=== PATIENT | female | born 1980 | race Caucasian/White ===

== ENCOUNTER 2018-01-30 14:53 | Emergency (ER) | payer MEDICAID, OTHER ==
[2018-01-30] MEDS ORDERED: oxyCODONE 5 MG Tab PO ONE (16:14)
[2018-01-30] MEDS ORDERED: Sodium Chloride 0.9% 10 ML Syringe FLUSH PRN (16:17)
--- NOTE | 2018-01-30 16:21 | EDM.PDOC ---
ED HPI GENERAL MEDICAL PROBLEM - General Chief Complaint: ENT Problem Stated Complaint: TOOTHACHE Time Seen by Provider: 01/30/18 16:15 Source of Information: Reports: Patient History Limitations: Reports: No Limitations - History of Present Illness INITIAL COMMENTS - FREE TEXT/NARRATIVE: Sully is a 37 year old female who presents to the ED today with c/o right sided facial pain, progressive over the last 2 days. Patient denies any tooth pain. Patient denies any fever/chills/nausea/vomiting. Patient has been taking ibuprofen and Tylenol without relief. Onset: Gradual Duration: Day(s): (2) right jaw Pain Score (Numeric/FACES): 9 - Related Data Allergies Allergy/AdvReac Type Severity Reaction Status Date / Time gabapentin Allergy Severe Muscle Verified 01/30/18 15:32 Weakness Sulfa (Sulfonamide Allergy Intermediate Rash Verified 01/30/18 15:32 Antibiotics) cat dander Allergy Hives Verified 01/30/18 15:32 dog dander Allergy Hives Verified 01/30/18 15:32 mold Allergy Hives Verified 01/30/18 15:32 Home Meds: Home Meds Cholecalciferol (Vitamin D3) [Vitamin D] 2,000 unit PO DAILY 06/10/13 [History] diphenhydrAMINE [Benadryl] 50 mg PO ASDIRECTED PRN 01/29/14 [History] Acetaminophen [Tylenol Extra Strength] 1,000 tab PO BID PRN 03/21/15 [History] Cetirizine [ZyrTEC] 10 mg PO BID 03/21/15 [History] predniSONE [Prednisone] 5 mg PO DAILY 03/21/15 [History] Triamcinolone Acetonide [Triamcinolone Acetonide 0.1% Oint] 1 applic TOP BID [History] tiZANidine [Zanaflex] 4 mg PO BID 12/20/15 [History] Omeprazole 20 mg PO DAILY 01/11/16 [History] DULoxetine [Cymbalta] 60 mg PO DAILY 01/30/18 [History] azaTHIOprine [Imuran] 75 mg PO BID 01/30/18 [History] Past Medical History HEENT History: Reports: Allergic Rhinitis Other HEENT History: recurrent strep Respiratory History: Reports: Other (See Below) Other Respiratory History: Indoor allergies Gastrointestinal History: Reports: GERD, Hiatal Hernia Other Gastrointestinal History: Constipation, Fatty Liver 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 sacrioilitis Psychiatric History: Reports: Addiction, Anxiety, Depression, Psych Hospitalization(s), PTSD, Suicidal Ideation Other Endocrine/Metabolic History: Questionable Lupus Other Dermatologic History: Returning rash treated with triamcinolone cream - Infectious Disease History Infectious Disease History: Reports: Other (See Below) Other Infectious Disease History: HPV - Past Surgical History Musculoskeletal Surgical History: Reports: Arthroscopic Knee Social & Family History - Tobacco Use Smoking Status *Q: Current Every Day Smoker Years of Tobacco use: 18 Packs/Tins Daily: 0.5 - Recreational Drug Use Recreational Drug Use: No ED ROS ENT - Review of Systems Review Of Systems: ROS reveals no pertinent complaints other than HPI. ED EXAM, ENT - Physical Exam Exam: See Below Exam Limited By: No Limitations General Appearance: Alert, WD/WN, Other (appears uncomfortable) Ears: Normal External Exam, Normal Canal, Normal TMs Nose: Normal Inspection, Normal Mucousa Mouth/Throat: Normal Inspection, Normal Gums, Normal Lips, Normal Oropharynx, Normal Teeth, Other (Patient has no tenderness with tooth tapping) Head: Atraumatic, Facial Tenderness (Right mastoid area is significantly tender on exam, as well as right TMJ region) Neck: Normal Inspection, Supple, Non-Tender Respiratory/Chest: No Respiratory Distress Cardiovascular: Regular Rate, Rhythm GI/Abdominal: Normal Bowel Sounds Neurological: Alert, Oriented Psychiatric: Normal Affect Course - Vital Signs Last Recorded V/S: Last Vital Signs Temp 35.8 C 01/30/18 15:47 Pulse 76 01/30/18 17:09 Resp 12 01/30/18 17:09 BP 136/85 01/30/18 17:09 Pulse Ox 99 01/30/18 17:09 Sully is a 37 year old female who presents to the ED today with c/o right jaw pain. Please refer to HPI and focused exam. Patient has very tender mastoid but no other signs of mastoiditis. Teeth are not tender to palp. TM and right ear unremarkable. CT scan obtained a maxillofacial contrast to rule out mastoiditis/abscess. CT scan shows no signs of acute mastoiditis, no malloclussion, there is concern radiology for possible right-sided subluxation. Patient is able tto open her mouth fully without pain. GIven reassuring CT scan I am going to treat this as dental in nature and start patient on Amoxicillin, Ibuprofen for pain, [place] for sever pain, narcotic safety and side effects discussed. Patient to call dentist tomorrow morning. Reasons to return to the ED discussed. Patient agreeable and discharged in stable condition. - Orders/Labs/Meds Orders: Active Orders 24 hr Category Date Time Status Peripheral IV Care [RC] . DIRECTED Care 01/30/18 16:17 Active Max Facial Sinus w Cont [CT] Stat Exams 01/30/18 16:14 Taken Iopamidol [Isovue-300 (61%)] Med 01/30/18 16:30 Active 100 ml IV . DIRECTED Sodium Chloride 0.9% [Saline Flush] Med 01/30/18 16:17 Active 10 ml FLUSH ASDIRECTED PRN Peripheral IV Insertion Adult [OM.PC] Routine Oth 01/30/18 16:17 Ordered Medication Orders Iopamidol (Isovue-300 (61%)) 100 ml IV . DIRECTED ELIUD Last Admin: 01/30/18 16:46 Dose: 100 ml Sodium Chloride (Saline Flush) 10 ml FLUSH ASDIRECTED PRN PRN Reason: Keep Vein Open Last Admin: 01/30/18 16:25 Dose: 10 ml Meds: Medications Generic Name Dose Route Start Last Admin Trade Name Freq PRN Reason Stop Dose Admin Iopamidol 100 ml 01/30/18 16:30 01/30/18 16:46 Isovue-300 (61%) IV 100 ml . DIRECTED ELIUD Administration Sodium Chloride 10 ml 01/30/18 16:17 01/30/18 16:25 Saline Flush FLUSH 10 ml ASDIRECTED PRN Administration Keep Vein Open Discontinued Medications Generic Name Dose Route Start Last Admin Trade Name Freq PRN Reason Stop Dose Admin Sodium Chloride 80 mls @ 3.5 mls/sec 01/30/18 16:26 01/30/18 16:46 Normal Saline IV 01/30/18 16:27 2 mls/sec ONETIME ONE Administration Oxycodone HCl 10 mg 01/30/18 16:14 01/30/18 16:24 Oxycodone PO 01/30/18 16:15 10 mg ONETIME ONE Administration Sodium Chloride 10 ml 01/30/18 16:26 01/30/18 16:46 Saline Flush FLUSH 01/30/18 16:27 10 ml ONETIME ONE Administration Departure - Departure Time of Disposition: 18:25 Disposition: Home, Self-Care 01 Condition: Good Clinical Impression: Jaw pain - Discharge Information Instructions: Dental Abscess, [id number] Referrals: PCP,None [Primary Care Provider] - Forms: ED Department Discharge Additional Instructions: Take antibiotics as prescibed. Ibuprofen 600 mg every 6 hours. [place] for pain. Follow up with primary care provider. - My Orders Last 24 Hours: My Active Orders 01/30/18 16:14 Max Facial Sinus w Cont [CT] Stat 01/30/18 16:17 Peripheral IV Care [RC] . DIRECTED Sodium Chloride 0.9% [Saline Flush] 10 ml FLUSH ASDIRECTED PRN Peripheral IV Insertion Adult [OM.PC] Routine 01/30/18 16:30 Iopamidol [Isovue-300 (61%)] 100 ml IV . DIRECTED - Assessment/Plan Last 24 Hours: My Active Orders 01/30/18 16:14 Max Facial Sinus w Cont [CT] Stat 01/30/18 16:17 Peripheral IV Care [RC] . DIRECTED Sodium Chloride 0.9% [Saline Flush] 10 ml FLUSH ASDIRECTED PRN Peripheral IV Insertion Adult [OM.PC] Routine 01/30/18 16:30 Iopamidol [Isovue-300 (61%)] 100 ml IV . DIRECTED
[2018-01-30] MEDS ORDERED: Sodium Chloride 0.9% 10 ML Syringe FLUSH ONE (16:26)
[2018-01-30] MEDS ORDERED: Sodium Chloride 0.9% 80 ML IV ONE (16:26)
[2018-01-30] MEDS ORDERED: Iopamidol 612 MG/ML 100 ML Bottle IV SCH (16:30)
[2018-01-30 17:10] VITALS: BP 136/85
== END 2018-01-30 18:25 | disposition home or self-care (01) ==
LOC: JP.ED 14:53
DX: R68.84 Jaw pain (principal); F17.210 Nicotine dependence, cigarettes, uncomplicated; F41.9 Anxiety disorder, unspecified; F32.9 Major depressive disorder, single episode, unspecified; K21.9 Gastro-esophageal reflux disease without esophagitis; Z79.899 Other long term (current) drug therapy; Z88.2 Allergy status to sulfonamides; Z91.09 Other allergy status, other than to drugs and biological substances; Z88.8 Allergy status to other drugs, medicaments and biological substances
CPT/HCPCS: 70487; 99284; A9270; J7030; J7050; Q9967

== ENCOUNTER 2019-12-22 15:33 | Emergency (ER) | payer OTHER, MEDICAID ==
[2019-12-22 15:57] VITALS: PULSE 73
[2019-12-22 15:59] VITALS: BP 110/64
[2019-12-22] MEDS ORDERED: Bupivacaine 0.5%/EPINEPHrine 1:200,000 1.8 ML Cartridge INJECT ONE (16:24)
--- NOTE | 2019-12-22 16:24 | EDM.PDOC ---
ED HPI GENERAL MEDICAL PROBLEM - General Chief Complaint: ENT Problem Stated Complaint: LOWER LEFT TOOTH PAIN Time Seen by Provider: 12/22/19 16:00 Source of Information: Reports: Patient, Old Records History Limitations: Reports: Other (no access to dental records) - History of Present Illness INITIAL COMMENTS - FREE TEXT/NARRATIVE: 39 yo female has been dealing with her dentist over a painful L sided mandibular molar for over a week. Has been on a couple oral antibiotics, penicillin and clindamycin without benefit. Her dentist apparently is not seeing any patients during the Covid crisis. Was recently to the ER in [place] and has been on the above antibiotics from her primary. Not fever. Has pain with opening her mouth. Feels like she has some facial swelling. Not getting relief with Tylenol #3 and ibuprofen. Onset: Gradual Duration: Week(s): (1+), Getting Worse Location: Reports: Face (L mandible) Quality: Reports: Ache, Pressure Severity: Moderate Improves with: Reports: Medication Worsens with: Reports: Other (time, opening her mouth) Context: Reports: Other (See HPI) Associated Symptoms: Reports: Other (fatigue). 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) (clindamycin 300 mg po, ibuprofen 600 mg 4.5 hrs ago, Tylenol #3) Left Lower Tooth/Teeth Pain Score (Numeric/FACES): 4 - Related Data Allergies Allergy/AdvReac Type Severity Reaction Status Date / Time gabapentin Allergy Severe Muscle Verified 12/22/19 15:50 Weakness Sulfa (Sulfonamide Allergy Intermediate Rash Verified 12/22/19 15:50 Antibiotics) cat dander Allergy Hives Verified 12/22/19 15:50 dog dander Allergy Hives Verified 12/22/19 15:50 mold Allergy Hives Verified 12/22/19 15:50 Home Meds: Home Meds Cholecalciferol (Vitamin D3) [Vitamin D] 2,000 unit PO DAILY 06/10/13 [History] diphenhydrAMINE [Benadryl] 50 mg PO ASDIRECTED PRN 01/29/14 [History] Acetaminophen [Tylenol Extra Strength] 1,000 tab PO BID PRN 03/21/15 [History] Cetirizine [ZyrTEC] 10 mg PO BID 03/21/15 [History] Omeprazole 20 mg PO DAILY 01/11/16 [History] Citalopram [Citalopram HBr] 20 mg PO BEDTIME 12/22/19 [History] Clindamycin HCl 300 mg PO QID 12/22/19 [History] Hydroxychloroquine Sulfate 2 tab PO ASDIRECTED 12/22/19 [History] Past Medical History HEENT History: Reports: Allergic Rhinitis Other HEENT History: recurrent strep Respiratory History: Reports: Other (See Below) Other Respiratory History: Indoor allergies Gastrointestinal History: Reports: GERD, Hiatal Hernia Other Gastrointestinal History: Constipation, Fatty Liver 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 sacrioilitis Psychiatric History: Reports: Addiction, Anxiety, Depression, Psych Hospitalization(s), PTSD, Suicidal Ideation Other Endocrine/Metabolic History: Questionable Lupus Immunologic History: Reports: Other (See Below) Other Immunologic History: palindromic rheumatism. Other Dermatologic History: Returning rash treated with triamcinolone cream - Infectious Disease History Infectious Disease History: Reports: Other (See Below) Other Infectious Disease History: HPV - Past Surgical History Musculoskeletal Surgical History: Reports: Arthroscopic Knee Social & Family History - Tobacco Use Smoking Status *Q: Light Tobacco Smoker Years of Tobacco use: 20 Packs/Tins Daily: 0.7 - Caffeine Use Caffeine Use: Reports: Coffee - Recreational Drug Use Recreational Drug Use: No ED ROS ENT - Review of Systems Review Of Systems: See Below Constitutional: Reports: Malaise, Fatigue. Denies: Fever, Chills HEENT: Reports: Dental Pain Respiratory: Reports: No Symptoms Cardiovascular: Reports: No Symptoms GI/Abdominal: Reports: No Symptoms : Reports: No Symptoms Musculoskeletal: Reports: No Symptoms Skin: Reports: No Symptoms Neurological: Reports: No Symptoms Psychiatric: Reports: No Symptoms ED EXAM, ENT - Physical Exam Exam: See Below Exam Limited By: No Limitations General Appearance: Alert, WD/WN, No Apparent Distress Eye Exam: Bilateral Eye: Normal Inspection Ears: Normal External Exam, Normal Canal, Hearing Grossly Normal, Normal TMs Nose: Normal Inspection, No Blood Mouth/Throat: Normal Inspection, Normal Lips, Normal Oropharynx, Dental Pain (L mandibular 2nd molar has a missing filling. This tooth is very tender. No palpable intraoral swelling or facial swelling. ), Dental Tenderness. No: Normal Teeth, Peritonsillar Mass, Pharyngeal Erythema, Throat Pain, Throat Swelling Head: Atraumatic, Normocephalic. No: Facial Swelling Neck: Normal Inspection. No: Lymphadenopathy (R), Lymphadenopathy (L) Extremities: Normal Inspection Neurological: Alert, Oriented, CN II-XII Intact, Normal Cognition, No Motor/ Sensory Deficits Psychiatric: Normal Affect, Normal Mood Skin: Warm, Dry, Intact, Normal Color, No Rash Course - Vital Signs Text/Narrative:: Sully called her dentist while in the ER and he is working on finding her an oral surgeon to extract her tooth. Last Recorded V/S: Last Vital Signs Temp 36.6 C 12/22/19 15:58 Pulse 73 12/22/19 15:58 Resp 16 12/22/19 15:58 BP 110/64 12/22/19 15:59 Pulse Ox 98 12/22/19 15:58 - Orders/Labs/Meds Meds: Medications Discontinued Medications Generic Name Dose Route Start Last Admin Trade Name Sarah PRN Reason Stop Dose Admin Bupivacaine HCl/Epinephrine Bitart 1.8 ml 12/22/19 16:24 12/22/19 16:31 Marcaine 0.5%/Epinephrine 1:200,000 INJECT 12/22/19 16:25 1.8 ml ONETIME ONE Administration - Re-Assessments/Exams Free Text/Narrative Re-Assessment/Exam: 12/22/19 16:37 Got relief from bupivacaine injection, submandibular nerve block. Departure - Departure Time of Disposition: 16:45 Disposition: Home, Self-Care 01 Condition: Fair Clinical Impression: Pain, dental - Discharge Information *PRESCRIPTION DRUG MONITORING PROGRAM REVIEWED*: No *COPY OF PRESCRIPTION DRUG MONITORING REPORT IN PATIENT JAYCEE: No Referrals: PCP,None [Primary Care Provider] - Forms: ED Department Discharge Additional Instructions: Continue your clindamycin as prescribed. Take ibuprofen 600 mg every 6 hrs with food for pain relief. Add Percocet as directed for added relief. F/U on Wednesday for dental extraction. Soft diet. Sepsis Event Note - Evaluation Sepsis Screening Result: No Definite Risk - Focused Exam Vital Signs: Vital Signs Temp Pulse Resp BP Pulse Ox 12/22/19 15:59 110/64 12/22/19 15:58 36.6 C 73 16 98/39 L 98 04/24/20 15:54 36.6 C 73 16 98/39 L 98 Date Exam was Performed: 12/22/19 Time Exam was Performed: 16:37
== END 2019-12-22 16:54 | disposition home or self-care (01) ==
LOC: JP.ED 15:33
DX: K08.89 Other specified disorders of teeth and supporting structures (principal); F41.9 Anxiety disorder, unspecified; F32.9 Major depressive disorder, single episode, unspecified; K21.9 Gastro-esophageal reflux disease without esophagitis; F17.210 Nicotine dependence, cigarettes, uncomplicated; Z88.8 Allergy status to other drugs, medicaments and biological substances; Z88.2 Allergy status to sulfonamides; Z91.09 Other allergy status, other than to drugs and biological substances; Z79.899 Other long term (current) drug therapy
CPT/HCPCS: 64400; 99282; J3490

== ENCOUNTER 2022-10-25 07:52 | Emergency (ER) | payer MEDICAID ==
[2022-10-25 09:21] VITALS: BP 112/73; PULSE 85
[2022-10-25 09:26] LABS: CORONAVIRUS COVID-19 NAA POSITIVE (NEGATIVE)
[2022-10-25 09:43] LABS: ESTIMATED GFR 116 mL/min (>60)
== END 2022-10-25 10:01 | disposition home or self-care (01) ==
LOC: JP.ED 07:52
DX: U07.1 COVID-19 (principal); Z88.2 Allergy status to sulfonamides; Z91.048 Other nonmedicinal substance allergy status; Z88.8 Allergy status to other drugs, medicaments and biological substances; Z87.891 Personal history of nicotine dependence
CPT/HCPCS: 0241U; 36415; 80053; 83605; 85025; 86140; 99283

== ENCOUNTER 2023-02-21 09:10 | Emergency (ER) | payer MEDICAID ==
[2023-02-21 11:15] VITALS: BP 109/71; PULSE 79
== END 2023-02-21 11:12 | disposition home or self-care (01) ==
LOC: JP.ED 09:10
DX: M12 Other and unspecified arthropathy (principal); M12.371 Palindromic rheumatism, right ankle and foot; Z88.2 Allergy status to sulfonamides; Z91.018 Allergy to other foods; Z91.048 Other nonmedicinal substance allergy status; Z86.16 Personal history of COVID-19; Z87.891 Personal history of nicotine dependence
CPT/HCPCS: 99283

== ENCOUNTER 2023-03-14 09:50 | Emergency (ER) | payer MEDICAID ==
[2023-03-14 11:29] LABS: HEMATOCRIT 38.3 % (34.3-46.0); HEMOGLOBIN 13.1 g/dL (11.2-15.5); MEAN CORPUSCULAR HEMOGLOBIN 30.3 pg (31.6-35.5); MEAN CORPUSCULAR HGB CONC 34.2 g/dL (31.6-35.5); MEAN CORPUSCULAR VOLUME 88.7 fL (81.4-99.0); RED BLOOD CELL COUNT 4.32 M/uL (3.77-5.24); WHITE BLOOD CELL COUNT,WBC 8.3 K/uL (3.2-11.0)
[2023-03-14 11:49] LABS: A/G RATIO 1.1 (1.2-2.2); ALANINE AMINOTRANSFERASE,ALT 49 U/L (12-78); ALBUMIN 3.3 g/dL (3.4-5.0); ALKALINE PHOSPHATASE 44 U/L (46-116); ASPARTATE AMNIOTRANSFERASE,AST 128 U/L (15-37); BILIRUBIN TOTAL 0.5 mg/dL (0.2-1.0); BLOOD UREA NITROGEN,BUN 18 mg/dL (7-18); CALCIUM 7.9 mg/dL (8.5-10.1); CARBON DIOXIDE,CO2 26 mmol/L (21-32); CHLORIDE,CL 105 mmol/L (100-108); CREATININE 0.7 mg/dL (0.6-1.0); EST CRCL DRUG DOSING (CG) 88.37 mL/min; ESTIMATED GFR 112 mL/min (>60); GLUCOSE RANDOM 84 mg/dL (74-106); POTASSIUM,K 4.1 mmol/L (3.6-5.2); PROTEIN TOTAL,TP 6.4 g/dL (6.4-8.2); SODIUM,NA 139 mmol/L (140-148)
[2023-03-14 11:50] LABS: ANION GAP 12.1 mmol/L (5.0-14.0)
[2023-03-14 12:38] VITALS: BP 115/69; PULSE 76
== END 2023-03-14 15:30 | disposition home or self-care (01) ==
LOC: JP.ED 09:50
DX: M54.6 Pain in thoracic spine (principal); R74.01 Elevation of levels of liver transaminase levels; Z87.891 Personal history of nicotine dependence; Z86.16 Personal history of COVID-19; Z79.899 Other long term (current) drug therapy; Z91.018 Allergy to other foods; Z91.013 Allergy to seafood; Z91.048 Other nonmedicinal substance allergy status; Z88.2 Allergy status to sulfonamides; Z88.8 Allergy status to other drugs, medicaments and biological substances
CPT/HCPCS: 36415; 71046; 71046-26; 76700; 80053; 83690; 84484; 85027; 85379; 93005; 99285

== ENCOUNTER 2025-01-05 21:33 | Emergency (ER) | payer SELFPAY ==
[2025-01-05 21:55] VITALS: BP 129/72; PULSE 76
[2025-01-05] MEDS ORDERED: Naloxone 0.4 MG/ML SDV IVPUSH PRN (22:08)
[2025-01-05] MEDS: Diphtheria,Pertussis(Acell),Tetanus Vaccine 0.5 ML Syringe IM ONE (22:13)
[2025-01-05] MEDS: Lidocaine/Epineph/Tetracaine 3 ML Syringe TOP ONE (22:15)
[2025-01-05] MEDS: HYDROmorphone 1 MG/ML Syringe IM ONE (22:15)
[2025-01-05] MEDS: Silver Sulfadiazine 1% Crm 50 GM Tube TOP ONE (22:31)
== END 2025-01-05 23:05 | disposition home or self-care (01) ==
LOC: JP.ED 21:33
DX: Z23 Encounter for immunization (principal); Z88.2 Allergy status to sulfonamides; Z88.8 Allergy status to other drugs, medicaments and biological substances; Z91.018 Allergy to other foods; Z91.048 Other nonmedicinal substance allergy status; Z79.899 Other long term (current) drug therapy; Z86.16 Personal history of COVID-19
CPT/HCPCS: 16000; 90471; 90715; 96372; 99283; A9270; J1171